=== PATIENT | female | born 1960 | race Caucasian/White ===

== ENCOUNTER 2019-11-01 13:44 | Outpatient (CLI) | payer OTHER, SELFPAY ==
--- NOTE | 2019-11-01 13:51 | MM_ITS ---
WS: [id number] BILATERAL DIGITAL SCREENING MAMMOGRAPHY WITH CAD CLINICAL INFORMATION: SCREENING HISTORY: Screening mammogram. No current complaints. COMPARISON: TECHNIQUE: Bilateral CC and MLO views. FINDINGS: Scattered fibroglandular densities bilaterally. Stable bilateral secretory calcifications. No suspici ous focal mass, asymmetry, calcifications, or architectural distortion. No evidence of malignancy. MM/[place] [id number] IMPRESSION: BI-RADS: 2-Benign FOLLOW UP: 1 Year Follow-up Recommend return to annual screening mammography.
== END 2019-11-01 13:45 | disposition home or self-care (01) ==
LOC: RADSHAW 13:48
PROVIDERS: PCP Family Medicine; Visit Provider Obstetrics & Gynecology
DX: Z12.31 Encounter for screening mammogram for malignant neoplasm of breast (principal)
CPT/HCPCS: 77067

== ENCOUNTER → 2019-12-29 14:00 | Outpatient (BNVA) | payer OTHER, SELFPAY | PROVIDERS: PCP Family Medicine; Visit Provider Nurse Practitioner Family | DX: N39.0 Urinary tract infection, site not specified (principal); D30.01 Benign neoplasm of right kidney | CPT/HCPCS: 81001 ==

== ENCOUNTER → 2020-09-24 08:53 | Outpatient (BNVA) | payer OTHER, SELFPAY | PROVIDERS: PCP Family Medicine; Visit Provider Nurse Practitioner Family | DX: Z20.828 Contact with and (suspected) exposure to other viral communicable diseases (principal); J98.8 Other specified respiratory disorders | CPT/HCPCS: 87635 ==

== ENCOUNTER → 2021-01-01 13:54 | Outpatient (BNVA) | payer OTHER, SELFPAY | PROVIDERS: PCP Family Medicine; Visit Provider Urology | DX: N39.0 Urinary tract infection, site not specified (principal); D30.01 Benign neoplasm of right kidney | CPT/HCPCS: 81003 ==

== ENCOUNTER 2021-01-17 14:13 | Outpatient (CLI) | payer OTHER, SELFPAY ==
--- NOTE | 2021-01-17 14:20 | MM_ITS ---
WS: [id number] BILATERAL SCREENING DIGITAL MAMMOGRAM WITH CAD HISTORY: SCREENING COMPARISON: 11/01/2019 and 09/29/2018 Bilateral CC and MLO views submitted. Computer aided detection analyzed. Breast composition: There are scattered areas of fibroglandular density. No suspicious masses, microc alcifications or architectural distortion. Benign rodlike calcifications scattered throughout each br east. MM/[place] [id number] IMPRESSION: BI-RADS: 2-Benign FOLLOW UP: 1 Year Follow-up
== END 2021-01-17 14:14 | disposition home or self-care (01) ==
LOC: RADSHAW 14:17
PROVIDERS: PCP Family Medicine; Visit Provider Obstetrics & Gynecology
DX: Z12.31 Encounter for screening mammogram for malignant neoplasm of breast (principal)
CPT/HCPCS: 77067

== ENCOUNTER 2022-02-12 14:18 | Outpatient (CLI) | payer OTHER, SELFPAY ==
--- NOTE | 2022-02-12 14:29 | MM_ITS ---
WS: [id number] BILATERAL 3D TOMOSYNTHESIS DIGITAL SCREENING MAMMOGRAPHY WITH CAD CLINICAL INFORMATION: Z12.39 - Encounter for other screening for malignant neop... HISTORY: Screening mammogram. No current complaints. COMPARISON: January 17, 2021 TECHNIQUE: Bilateral CC and MLO views. FINDINGS: Scattered fibroglandular densities bilaterally. Punctate and secretory calcifications. No suspicious focal mass, asymmetry, calcifications, or architectural distortion. No evidence of malignancy. MM/[place] [id number] IMPRESSION: BI-RADS: 2-Benign FOLLOW UP: 1 Year Follow-up Recommend return to annual screening mammography.
== END 2022-02-12 14:19 | disposition home or self-care (01) ==
PROVIDERS: PCP Family Medicine; Visit Provider Nurse Practitioner Women's Health
DX: Z12.31 Encounter for screening mammogram for malignant neoplasm of breast (principal)
CPT/HCPCS: 77063; 77067

== ENCOUNTER 2023-03-03 13:46 | Outpatient (CLI) | payer OTHER, SELFPAY ==
--- NOTE | 2023-03-03 13:56 | MM_ITS ---
WS: [id number] BILATERAL 3D TOMOSYNTHESIS DIGITAL SCREENING MAMMOGRAPHY WITH CAD CLINICAL INFORMATION: SCREENING HISTORY: Screening mammogram. No current complaints. COMPARISON: 2021 TECHNIQUE: Bilateral CC and MLO views. FINDINGS: Scattered fibroglandular densities bilaterally. No suspicious focal mass, asymmetry, calcifications, or architectural distortion. No evidence of malignancy. Incidental punctate and secretory calcificati ons. MM/[place] [id number] IMPRESSION: BI-RADS: 2-Benign FOLLOW UP: 1 Year Follow-up Recommend return to annual screening mammography.
== END 2023-03-03 13:47 | disposition home or self-care (01) ==
LOC: RAD 13:47
PROVIDERS: PCP Family Medicine; Visit Provider Family Medicine
DX: Z12.31 Encounter for screening mammogram for malignant neoplasm of breast (principal)
CPT/HCPCS: 77063; 77067

== ENCOUNTER 2023-05-05 13:48 | Outpatient (CLI) | payer OTHER, SELFPAY ==
--- NOTE | 2023-05-05 14:00 | XR_ITS ---
WS: [id number] SCREENING DEXA SCAN [employer] CLINICAL INFORMATION: Z78.0 - Asymptomatic menopausal state COMPARISON: None. FINDINGS: The L1-L4 bone mineral density measures 1.129 g/cm2. This corresponds to a T score score of -0.4 and Z score of 0.3. Left femoral neck bone mineral density measures 0.814 g/cm2. This corresponds to a T score of -1.5 an d Z score of -1.0. Right femoral neck bone mineral density measures 0.849 g/cm2. This corresponds to a T score -1.3of an d Z score of -0.7. Mean femoral neck bone mineral density measures 0.832 g/cm2. This corresponds to a T score of -1.4 an d Z score of -0.8. IMPRESSION: Normal bone mineralization lumbar spine. Osteopenia femoral necks. Patient's FRAX calculated 10 year probability for major osteoporotic fracture is 15.3% and osteoporot ic hip fracture is 4.5%.
== END 2023-05-05 13:49 | disposition home or self-care (01) ==
PROVIDERS: PCP Family Medicine; Visit Provider Nurse Practitioner Women's Health
DX: Z13.820 Encounter for screening for osteoporosis (principal); Z78.0 Asymptomatic menopausal state
CPT/HCPCS: 77080

== ENCOUNTER 2024-03-25 14:23 | Outpatient (CLI) | payer BC, SELFPAY ==
--- NOTE | 2024-03-25 14:31 | MM_ITS ---
WS: [id number] BILATERAL 3D TOMOSYNTHESIS DIGITAL SCREENING MAMMOGRAPHY WITH CAD CLINICAL INFORMATION: SCREEN HISTORY: Screening mammogram. No current complaints. COMPARISON: 2022 TECHNIQUE: Bilateral CC and MLO views. FINDINGS: Scattered fibroglandular densities bilaterally. No suspicious focal mass, asymmetry, calcifications, or architectural distortion. No evidence of malignancy. Incidental secretory calcifications. MM/[place] [id number] IMPRESSION: BI-RADS: 2-Benign FOLLOW UP: 1 Year Follow-up Recommend return to annual screening mammography.
== END 2024-03-25 14:24 | disposition home or self-care (01) ==
LOC: RAD 14:24
PROVIDERS: PCP Family Medicine; Visit Provider Nurse Practitioner Women's Health
DX: Z12.31 Encounter for screening mammogram for malignant neoplasm of breast (principal); R92.323 Mammographic fibroglandular density, bilateral breasts; R92.1 Mammographic calcification found on diagnostic imaging of breast
CPT/HCPCS: 77063; 77067

== ENCOUNTER → 2025-01-03 09:35 | Outpatient (BNVA) | payer BC, SELFPAY | PROVIDERS: PCP Family Medicine; Visit Provider Nurse Practitioner | DX: M79.671 Pain in right foot (principal) | CPT/HCPCS: 73630 ==

== ENCOUNTER 2025-04-19 13:01 | Outpatient (CLI) | payer BC, SELFPAY ==
--- NOTE | 2025-04-19 13:08 | MM_ITS ---
WS: [id number] BILATERAL 3D TOMOSYNTHESIS DIGITAL SCREENING MAMMOGRAPHY WITH CAD CLINICAL INFORMATION: SCREENING HISTORY: Screening mammogram. No current complaints. COMPARISON: 2023 TECHNIQUE: Bilateral CC and MLO views. FINDINGS: Scattered fibroglandular densities bilaterally. No suspicious focal mass, asymmetry, calcifications, or architectural distortion. No evidence of malignancy. Bilateral secretory calcifications. MM/MM scr tomosynthesis [id number] IMPRESSION: DENSITY: There are scattered areas of fibroglandular density. BI-RADS: 2 - Benign. FOLLOW UP: 1 Year Follow-up Recommend return to annual screening mammography.
== END 2025-04-19 13:02 | disposition home or self-care (01) ==
LOC: RAD 13:03
PROVIDERS: Visit Provider Nurse Practitioner Women's Health
DX: Z12.31 Encounter for screening mammogram for malignant neoplasm of breast (principal); R92.323 Mammographic fibroglandular density, bilateral breasts; R92.1 Mammographic calcification found on diagnostic imaging of breast
CPT/HCPCS: 77063; 77067

== ENCOUNTER → 2025-05-15 13:24 | Outpatient (BNVA) | payer BC, SELFPAY | PROVIDERS: PCP Nurse Practitioner; Visit Provider Nurse Practitioner | DX: M79.671 Pain in right foot (principal) | CPT/HCPCS: 73630 ==

== ENCOUNTER 2025-07-06 11:37 | Emergency (ER) | payer BC, SELFPAY ==
[2025-07-06 11:43] VITALS: BP 115/50; PULSE 71; TEMP 36.6; O2SAT 98; BMI 34.5
--- OUTSIDE RECORDS SUMMARY | 2025-07-06 12:05 | XMS_ITS | Patient Health Record ---
Author Organization [facility] Address [address] [place] [address] Care Team Providers Care Slat Grader Name Role Phone Abida Jones APRN Primary Care Provider Unav ailable Evan Fuller Unavailable Allergies Allergen (clinical drug ingredient) Drug/Non Drug Allergy documented on EMR Reaction Allergy Type Onset Date Status nitrofurantoin, macrocrystals / nitrofurantoin, monohydrate Macrobid Unknown Drug Allergy Active Results Component Value Reference Range Notes Diagnostic Colonoscopy-40001 Reviewed date:07/26/2024 02:25:41 PM Interpretation: Performing Lab: Notes/Report: Reason For Referral No Information Medications Medication SIG (Take, Route, Frequency, Duration) Notes Start Date End Date Status Pregabalin 225 MG Capsule 1 capsule in t he evening 1 to 3 hours before bedtime Orally Once a day Active Cephalexin 500 MG Capsule 1 capsule as n eeded Orally every 6 hrs Active Rosuvastatin Calcium 20 MG Tablet 1 tablet Orally Once a day Active Pioglitazone HCl 45 MG Tablet 1 tablet Orally Once a day Active Nystatin 778960 UNIT/GM Powder 1 application Externally Twice a day Active Aspirin 81 MG Tablet Delayed Release 1 tablet Orally Once a day Active Vitamin D3 125 MCG (5000 UT) Tablet 1 tablet Orally Once a day Active FLUoxetine HCl 20 MG Capsule 1 capsule Orally Once a day Active Triamcinolone Acetonide 0.5 % Cream 1 application Externally Two times a Week Active Fenofibrate 134 MG Capsule 1 capsule wit h a meal Orally Once a day Active Tresiba FlexTouch 200 UNIT/ML Solution Pen-injector as directed Subcutaneous Active Estrace 0.1 MG/GM Cream as directed Vaginal Active Aspirin 81 MG Capsule 1 capsule Orally O nce a day Active Mounjaro 7.5 MG/0.5ML Solution Pen-injector as directed Subcutaneous Active metFORMIN HCl 1000 MG Tablet 1 tablet with a meal Orally Once a day Active Magnesium 250 MG Capsule as directed Orally Active Vitamin E 400 UNIT Capsule 1 capsule Ora lly Once a day Active Cephalexin 250 MG Tablet 1 tablet Orally Once a day Not-Taking Cholecalciferol 100 MCG (4000 UT) Tablet 1 tablet Orally Once a day Active Fenofibrate Micronized 134 MG Capsule 1 capsule with a meal Orally Once a day Active Fluoxetine 20 MG Capsule 1 capsule Orall y Once a day Active Social History Tobacco Use: Social History Observation Description Date Details (start date - stop date) Never Smoker NA - NA Social History Depression Screening Social Info Question Answer Notes depression screening findings Findings Negative (0-4) Completed 05/25/2024 PHQ-9 Little interest or pleasure in doing things Not at all Feeling down, depressed, or hopeless Not at all Trouble falling or staying asleep, or sleeping t oo much Not at all Feeling tired or having little energy Not at all Poor appetite or overeating Not at all Feeling bad about yourself, or that you are a failure, or have let yourself or your family down Not at all Trouble concentrating on thi ngs, such as reading the newspaper or watching television Not at all Moving or speaking so slowly that other people could have noticed. Or the opposite ? being so fidgety or restless that you have been moving around a lot more than usual Not at all Thoughts that you would be b jasson off , or of hurting yourself in some way Not at all Total Score 0 Drugs/Alcohol: Social Info Question Answer Notes Drugs Have you used drugs other than those for medical reasons in the past 12 months? No Drug/Alcohol: Social Info Question Answer Notes AUDIT-C (Standard) Did you have a drink containing alcohol in the past year? No Points 0 Interpretation Negative Tobacco Use: Social Info Question Answer Notes Tobacco Control (Standard) Tobacco use: Nonsmoker Problems Problem Type SNOMED Code ICD Code Onset Dates Problem Status W/U Status Risk Notes Problem History of polyp of colon (situation) (581580028) History of colon polyps (Z86.010) Active confirmed Encounters Encounter Location Date Provider Diagnosis [facility] [address] [place] [id number] 07/22/2024 Evan Fuller History of colon polyps Z86.010 Assessments Encounter Date Diagnosis (ICD Code) Assessment Notes Treatment Notes Treatment Clinical Notes Section Notes 07/22/2024 History of colon polyps (ICD-10 - Z86.010) 07/22/2024 Other see scanned document from [facility] in patients documents. Plan Of Treatment No Information Insurance Providers Payer Name Payer Address Payer Phone Subscriber Number Group Number Insured Name Patient Relationship to Insured Coverage Start Date Coverage End Date [employer] [address] [place] [phone] [id number] JOSIE BANDA Self - patient is the insured Medical (General) History Medical History History ICD Code multiple sclerosis type II diabetes Surgical History Surgery Date(Month/Year) DNC hysterectomy
--- NOTE | 2025-07-06 12:13 | XR_ITS ---
WS: [id number] Exam: XR chest 1V portable [id number] Date/Time of Exam: 07/06/2025 12:13 PM Reason For Exam: dyspnea/cough No priors. The lungs are fully inflated and clear. Cardiomediastinal silhouette is unremarkable for technique. No pleural effusion. Mild thoracolumbar S-shaped scoliosis. Normal bony structures. Scattered calcified granulomas bilaterally. XR/XR chest 1V portable [id number] IMPRESSION: 1. No acute cardiopulmonary finding.
[2025-07-06 12:48] LABS: Hematocrit 39.8 % (36-47); Hemoglobin 12.80 g/dL (11.27-16.99); Mean Corpuscular HGB Conc 32.2 g/dL (30-55); Mean Corpuscular Hemoglobin 30.5 pg (27-33); Mean Corpuscular Volume 94.8 fl (85-98); Nucleated Red Blood Cells % 0 %; Platelet Count 471 10^3/cmm (157-399); Red Blood Count 4.20 10^6/uL (3.85-5.65); White Blood Count 4.94 10^3/uL (3.29-11.43)
[2025-07-06 13:07] LABS: Alanine Aminotransferase 22 U/L (0-33); Albumin Level 4.4 g/dL (3.5-5.2); Alkaline Phosphatase 64 U/L (35-105); Anion Gap 17.1 (5-19); Aspartate Amino Transferase 25 U/L (0-32); Blood Urea Nitrogen 23 mg/dL (8-23); Calcium 9.4 mg/dL (8.5-10.5); Carbon Dioxide 25 mmol/L (22-29); Chloride 103 mmol/L (98-107); Creatinine Clr Calc Pharmacy 92.5377; Globulin 3.0 g/dL (1.3-4.6); Glucose 88 mg/dL (65-115); Osmolality Calculated 295 mOsm/kg (285-295); Potassium 4.1 mmol/L (3.5-5.1); Sodium 141 mmol/L (136-145); Total Protein 7.4 g/dL (6.6-8.7)
--- NOTE | 2025-07-06 13:59 | ED_ITS ---
HPI - Fall 2 General: Chief Complaint: Fall Stated Complaint: fall / abd pain Time Seen by Provider: 07/06/25 13:57 History of Present Illness: 65-year-old female with a history of marilia ropathy, depression, diabetes, obesity, hyperlipidemia, multiple sclerosis and recurrent urinary tract infections who presents to the emergency room with bilateral rib pain that has persisted after a fall 2 weeks ago. She says it hurts when she breathes. She says her chiropractor told her some ribs were out. No fevers. No cough. No altered mental status. No nausea or vomiting. No obvious deformities or bruising. Related Data Home Medications ?Medication ?Instructions ?Recorded ?Confirmed aspirin 81 mg tablet,delayed 81 mg PO DAILY 09/12/19 1 release cholecalciferol (vitamin D3) 25 4,000 unit PO DAILY 07/06/25 mcg (1,000 unit) capsule fenofibrate micronized 134 mg 134 mg PO DAILY 09/12/19 07/06/25 capsule metformin 500 mg tablet 1,000 mg PO BID 09/12/19 pregabalin 225 mg capsule (Lyrica) 225 mg PO BID 09/1207/06/25 multivitamin 1 tab PO DAILY 11/01/1906/09 nystatin 100,000 unit/gram topical 1 applic topical DA LINDEN PRN 11/01/19 07/06/25 powder pioglitazone 30 mg tablet 45 mg PO DAILY 05/03/2406/09 rosuvastatin 20 mg tablet 20 mg PO DAILY 05/03/2406/09 vitamin E (dl, acetate) 45 mg (100 45 mg PO DAILY 04/0807/06/25 unit) capsule insulin degludec 200 unit/mL (3 28 unit SUBCUT DAILY 0 05/15/25 07/06/25 mL) subcutaneous pen (Tresiba FlexTouch U-200 insulin) tirzepatide 12.5 mg/0.5 mL 12.5 mg SUBCUT .weekly 05/0107/06/25 subcutaneous pen injector (Nava) Previous Rx's ?Medication ?Instructions ?Recorded albuterol sulfate 90 mcg/actuation 2 inh inhalation QI D PRN shortness 12/05/24 aerosol inhaler of breath or wheezing #8.5 g demetra cephalexin 500 mg capsule 500 mg PO TID PRN acute infe ction 05/15/25 #60 caps fluoxetine 20 mg capsule 20 mg PO BID #180 caps 05/15 cyclobenzaprine 10 mg tablet 10 mg PO Q8H PRN muscle s pasm #20 07/06/25 tabs diclofenac sodium 50 mg 50 mg PO BID PRN pain #14 ta bs 07/06/25 tablet,delayed release estradiol 0.01% (0.1 mg/gram) 1 g vaginal .COMPLEX #42 .5 grams 07/06/25 vaginal cream (Estrace) tramadol 50 mg tablet 50 mg PO Q8H PRN pain #20 ta bs 07/06/25 triamcinolone acetonide 0.5 % See Rx Instructions .Rou te 07/06/25 topical cream .COMPLEX #15 grams Allergies Allergy/AdvReac Type Severity Reaction Status Date / Time nitrofurantoin (From Allergy ALGY-Rash Verified 07/06/25 14:53 Macrobid) Review of Systems 2 Narrative: Constitutional symptoms: Negative except as documented in HPI. Skin symptoms: Negative except as documented in HPI. Eye symptoms: Negative except as documented in HPI. ENMT symptoms: Negative except as documented in HPI. Respiratory symptoms: Negative except as documented in HPI. Cardiovascular symptoms: Negative except as documented in HPI. Gastrointestinal symptoms: Negative except as documented in HPI. Genitourinary symptoms: Negative except as documented in HPI. Musculoskeletal symptoms: Negative except as documented in HPI. Neurologic symptoms: Negative except as documented in HPI. Psychiatric symptoms: Negative except as documented in HPI. Endocrine symptoms: Negative except as documented in HPI. PFSH ED 2 PFSH: Medical History (Updated 07/06/25 @ 15:15 by Sulema Olivo APN, KELLY) Fatty liver Multiple sclerosis Neurology: S[facility] Hyperlipidemia HSV (herpes simplex virus) infection Diabetes mellitus [facility]. Kern Chronic cystitis Chronic vulvitis Surgical History Hx of carpal tunnel repair (~2008) L wrist History of liver biopsy (~2008) Status post dilation and curettage (~1986) SAB History of hysterectomy (08/10/01) Total abdominal hysterectomy, Left salpingo-oophorectomy, Abdominal sacral colpopexy, Modified Moschcowitz culdoplasty, Suazo urethropexy, Paravaginal repair, Posterior colporrhaphy with perineorrhaphy, Cystoscopy. Diagnosis: Incomplete uterovaginal prolapse (second degree uterine prolapse, second to third degree cystocele, first-degree rectocele), Stress urinary incontinence. Performed by Dr. Bob Palafox at [facility] in [place], [place]. Family History Father , AT AGE 73 Diabetes Heart disease Mother Hypertension Family history of thyroid problem Grandfather Heart disease Maternal Denies family history of Colon cancer Ovarian cancer Hypercholesteremia Breast cancer Uterine cancer Stroke Social History Smoking and tobacco/nicotine status: never used tobacco/nicotine Alcohol intake: unknown Substance/Drug Use: unknown Adopted: No Caregiver/support person: No Lives independently: Yes Household members: spouse Housing: House Marital status: Number of children: 2 service: No Current occupational status: retired Current occupational exposures/hazards: No Pets and animals: No Do you think of yourself as: Straight/Heterosexual Current gender identity: Female Physical Exam 2 Narrative: EXAM NARRATIVE: General: Alert, no acute distress. Skin: Warm, dry. Head: Normocephalic, atraumatic. Neck: Supple, trachea midline. Eye: Extraocular movements are intact. Ears, nose, mouth and throat: mucosa moist. Cardiovascular: Regular, Normal peripheral perfusion. Respiratory: Lungs are clear to auscultation, respirations are non-labored, breath sounds are equal, Symmetrical chest wall expansion. Bilateral rib tenderness Gastrointestinal: Soft, Nontender, Non distended Musculoskeletal: Normal ROM, no deformity. Neurological: Alert and oriented, No focal neurological deficit observed. Psychiatric: Cooperative, appropriate mood & affect. Course 2 Vital Signs: Vital signs: Vital Signs Temperature 97.8 F 07/06/25 11:43 Pulse Rate 69 07/06/25 14:16 Blood Pressure 125/77 07/06/25 14:16 Pulse Oximetry 99 07/06/25 14:16 Oxygen Delivery Me thod Room Air 07/06/25 14:03 MDM - Fall Medical Decision Making Medical decision making: Patient's reason for coming to the emergency room: Rib pain after a fall Social determinants: Patient is retired and . I reviewed the patient's medical record. 65-year-old female with a history of neuropathy, depression, diabetes, obesity, hyperlipidemia, multiple sclerosis and recurrent urinary tract infections I reviewed the patient's current home meds I reviewed prescription monitoring. Patient has had no narcotic prescriptions in the last year. Alternate historians: None Differential diagnosis: including but not limited to and based on the above HPI, review of systems and physical exam: In this patient with continued rib pain without concern for pneumonia, rib fractures, pneumothorax etc. X-ray and basic lab work ordered to evaluate. Chest x-ray: No acute process. No infiltrate. No pneumothorax. This was reviewed and interpreted by myself the emergency room physician. I also reviewed the radiology report. Lab Review: Laboratory results were reviewed and interpreted by myself the emergency room physician. No leukocytosis. No anemia. No renal failure. Assessment of risk: Level of risk: Moderate. Several comorbidities. Hospitalization considerations: No consideration of admission. Reexamination: Patient remained stable. No increased work of breathing. No altered mental status. No focal motor deficits. Assessment and plan: Rib contusion ?Toradol and Decadron in the emergency room - Discharged home - Discussed plan with patient. Answered any questions. - Evaluation and treatment of this problem were appropriate in the emergency setting. Lab Data 07/06/25 12:29 07/06/25 12:29 Radiology Impressions Chest X-Ray 07/06/25 12:13 IMPRESSION: 1. No acute cardiopulmonary finding. Laboratory Results WBC 4.94 10^3/uL (3.29-11.43) 07/06/25 12: RBC 4.20 10^6/uL (3.85-5.65) 07/06/25 12: Hgb 12.80 g/dL (11.27-16.99) 07/06/25 12: Hct 39.8 % (36-47) 07/06/25 12: MCV 94.8 fl (85-98) 07/06/25 12: MCH 30.5 pg (27-33) 07/06/25 12: MCHC 32.2 g/dL (30-55) 07/06/25 12:29 RDW 14.2 % (12.1-15.1) 07/06/25 12: Plt Count 471 10^3/cmm (157-399) H 07/06/25 12: MPV 9.9 fL (7.4-10.4) 07/06/25 12: Neut % (Auto) 58.7 % 07/06/25 12: Lymph % (Auto) 30.0 % 07/06/25 12: Curry % (Auto) 7.7 % 07/06/25 12: Eos % (Auto) 1.8 % 07/06/25 12: Baso % (Auto) 1.4 % 07/06/25 12: Neut # (Auto) 2.90 10^3/uL (1.8-7.7) 07/06/25 12: Lymph # (Auto) 1.5 10^3/uL (0.8-4.8) 07/06/25 12: Curry # (Auto) 0.4 10^3/uL (0.2-0.9) 07/06/25 12: Eos # (Auto) 0.1 10^3/uL (0.0-0.8) 07/06/25 12: Baso # (Auto) 0.1 10^3/uL (0.0-0.1) 07/06/25 12: Nucleated RBC % (auto) 0 % 07/06/25 12: Nucleated RBCs # 0.0 /100WBC 07/06/25 12: Sodium 141 mmol/L (136-145) 07/06/25 12: Potassium 4.1 mmol/L (3.5-5.1) 07/06/25 12: Chloride 103 mmol/L (98-107) 07/06/25 12: Carbon Dioxide 25 mmol/L (22-29) 07/06/25 12: Anion Gap 17.1 (5-19) 07/06/25 12: BUN 23 mg/dL (8-23) 07/06/25 12: Creatinine 0.6 mg/dL (0.5-0.9) 07/06/25 12: GFR Calculation 100.6 mL/min (90-130) 07/06/25 12: Glucose 88 mg/dL (65-115) 07/06/25 12: Calculated Osmolality 295 mOsm/kg (285-295) 07/06/25 12: Calcium 9.4 mg/dL (8.5-10.5) 07/06/25 12: Total Bilirubin 0.3 mg/dL (0.15-1.2) 07/06/25 12: AST 25 U/L (0-32) 07/06/25 12: ALT 22 U/L (0-33) 07/06/25 12: Alkaline Phosphatase 64 U/L (35-105) 07/06/25 12: Total Protein 7.4 g/dL (6.6-8.7) 07/06/25 12: Albumin 4.4 g/dL (3.5-5.2) 07/06/25 12: Globulin 3.0 g/dL (1.3-4.6) 07/06/25 12:29 Urine Color Yellow (Yellow) 07/06/25 13:46 Urine Appearance Cloudy (CLEAR) A 07/06/25 13:46 Urine pH 8.5 (5-7) A 07/06/25 13:46 Ur Specific [place] 1.021 (1.005-1.030) 07/06/25 13:46 Urine Protein Negative (Negative) 07/06/25 13:46 Urine Glucose (UA) Negative (Normal) 07/06/25 13:46 Urine Ketones Negative (Negative) 07/06/25 13:46 Urine Blood Negative (Negative) 07/06/25 13:46 Urine Nitrate Negative (Negative) 07/06/25 13:46 Urine Bilirubin Negative (Negative) 07/06/25 13:46 Urine Urobilinogen 1.0 mg/dL (Negative) 07/06/25 13:46 Ur Leukocyte Esterase Trace (Negative) A 07/06/25 13:46 Urine RBC 0-2 /hpf (0-2) 07/06/25 13:46 Urine WBC 0-5 /hpf (0-5) 07/06/25 13:46 Ur Squamous Epith Cells 11-20 /hpf (0-5) H 07/06/25 13:46 Amorphous Sediment Not Reportable 07/06/25 13:46 Urine Bacteria None seen /hpf (NONE) 07/06/25 13:46 Hyaline Casts 1.21 /lpf 07/06/25 13:46 All radiology interpretation(s) finalized by discharge Discharge Plan Discharge Patient Disposition: Home Clinical Impression: Rib contusion Condition: Stable Prescriptions: New cyclobenzaprine 10 mg tablet 10 mg PO Q8H PRN (Reason: muscle spasm) Qty: 20 0RF tramadol 50 mg tablet 50 mg PO Q8H PRN (Reason: pain) Qty: 20 0RF diclofenac sodium 50 mg tablet,delayed release (DR/EC) 50 mg PO BID PRN (Reason: pain) Qty: 14 0RF No Action nystatin 100,000 unit/gram powder 1 applic TOPICAL DAILY PRN multivitamin Tablet 1 tab PO DAILY fenofibrate micronized 134 mg capsule 134 mg PO DAILY cholecalciferol (vitamin D3) 1,000 unit capsule 4,000 unit PO DAILY aspirin 81 mg tablet,delayed release (DR/EC) 81 mg PO DAILY pregabalin [Lyrica] 225 mg capsule 225 mg PO BID metformin 500 mg tablet 1,000 mg PO BID Tresiba FlexTouch U-200 200 unit/mL (3 mL) insulin pen 28 unit SUBCUT DAILY Rx Instructions: 28 units pioglitazone 30 mg tablet 45 mg PO DAILY rosuvastatin 20 mg tablet 20 mg PO DAILY vitamin E (dl, acetate) 45 mg (100 unit) capsule 45 mg PO DAILY estradiol [Estrace] 0.01 % (0.1 mg/gram) cream 1 g vaginal .COMPLEX Qty: 42.5 3RF Rx Instructions: insert 1 gram at hs for 7 nights then twice weekly-- space out doses triamcinolone acetonide 0.5 % cream See Rx Instructions .ROUTE .COMPLEX Qty: 15 6RF Dose Instruction: APPLY TOPICALLY TWICE WEEKLY Rx Instructions: APPLY TOPICALLY TWICE WEEKLY Mounjaro 12.5 mg/0.5 mL pen injector 12.5 mg SUBCUT .weekly cephalexin 500 mg capsule 500 mg PO TID PRN (Reason: acute infection) Qty: 60 3RF Rx Instructions: 500 mg orally three times daily; for acute cystitis fluoxetine 20 mg capsule 20 mg PO BID Qty: 180 1RF albuterol sulfate 90 mcg/actuation HFA aerosol inhaler 2 inh inhalation QID PRN (Reason: shortness of breath or wheezing) Qty: 8.5 2RF Discharge Orders: Discharge ED (Routine); Ordered 07/06/25 Ordered By: Christelle Oviedo Referrals: Abida Jones, PROFESSOR OF RELIGION-C [Primary Care Provider, Family Practice] Discharge Diet: Usual diet Discharge Activity: Increase activity as tolerated Patient Instructions: Rib Contusion (ED), Opioid Safety, Pain Management, Patient Portal & Katie Instructions Activity Restrictions/Additional Instructions: Thank you for choosing [facility] for your healthcare needs today. You have been screened and evaluated and felt safe for discharge. Health conditions do change or evolve sometimes and as such it is important that you follow up with your Primary Doctor to be re checked, 3-5 days is a general good time frame for follow up. You are always welcome to return to the ED for re assessment if your symptoms are worsening or you have new concerns Print Language: Luxembourgish Coding Level of Care Code ED Supervisor Cloth Winding for Elmo Johnson
[2025-07-06 14:03] VITALS: BP 125/77; PULSE 63; O2SAT 99
[2025-07-06 14:03] LABS: Glucose Urine UA Negative (Normal); Nitrate Urine Negative (Negative); Specific Gravity, Urine 1.021 (1.005-1.030)
[2025-07-06 14:09] LABS: Add Urine Microscopic? YES
[2025-07-06 14:16] VITALS: BP 125/77; PULSE 69; O2SAT 99
== END 2025-07-06 14:17 | disposition home or self-care (01) ==
PROVIDERS: Family Medicine; Emergency Provider Emergency Medicine; PCP Nurse Practitioner
DX: S20.219A Contusion of unspecified front wall of thorax, initial encounter (principal); Z79.82 Long term (current) use of aspirin; Z79.84 Long term (current) use of oral hypoglycemic drugs; E78.5 Hyperlipidemia, unspecified; E11.9 Type 2 diabetes mellitus without complications; W19.XXXA Unspecified fall, initial encounter
CPT/HCPCS: 36415; 71045; 80053; 81001; 85025; 96372; 99284; J1100; J1885

== ENCOUNTER 2025-07-18 13:31 | Outpatient (CLI) | payer BC, SELFPAY ==
--- NOTE | 2025-07-18 13:30 | XR_ITS ---
WS: [id number] DEXA (DUAL ENERGY X-RAY ABSORPTIOMETRY) Bone mineral density was performed using a [employer] machine. HISTORY: Z78.0 - Asymptomatic menopausal state COMPARISON: 05/05/2023 Lumbar spine BMD (L1-L4): 1.126 g/cm2 T score: -0.5 Z score: 0.5 Total hip BMD: Left: 0.777 g/cm2. T score: -1.8 Z score: -1.1 Right: 0.842 g/cm2. T score: -1.3 Z score: -0.6 10 year probability of a major osteoporotic fracture is 14.5%. Compared to the prior study from 05/05/2023. Lumbar spine bone mineral density has decreased by 0.3%. Bilateral hips bone mineral density has decreased by 2.8%. XR/XR DEXA axial skeleton* [id number] IMPRESSION: OSTEOPENIA based upon the WHO classification for females. No significant change of bone mineral density in the lumbar spine since the tirso or study. Significant decrease in bone mineral density in the hips since the prior study.
== END 2025-07-18 13:32 | disposition home or self-care (01) ==
LOC: RAD 13:31
PROVIDERS: PCP Nurse Practitioner; Visit Provider Nurse Practitioner Women's Health
DX: Z13.820 Encounter for screening for osteoporosis (principal); Z78.0 Asymptomatic menopausal state; M85.88 Other specified disorders of bone density and structure, other site
CPT/HCPCS: 77080

== ENCOUNTER → 2025-08-01 12:07 | Outpatient (BNVA) | payer BC, SELFPAY | PROVIDERS: PCP Nurse Practitioner; Visit Provider Nurse Practitioner Women's Health | DX: G62.9 Polyneuropathy, unspecified (principal); Z78.0 Asymptomatic menopausal state; M85.80 Other specified disorders of bone density and structure, unspecified site | CPT/HCPCS: 82306; 82670 ==

== ENCOUNTER → 2025-08-07 15:15 | Outpatient (BNVA) | payer BC, SELFPAY | PROVIDERS: PCP Nurse Practitioner; Visit Provider Nurse Practitioner | DX: R10.31 Right lower quadrant pain (principal) | CPT/HCPCS: 80053; 81000; 85025 ==

== ENCOUNTER 2025-08-16 15:34 | Outpatient (CLI) | payer BC, SELFPAY ==
--- NOTE | 2025-08-16 16:45 | CTR_ITS ---
PROCEDURE INFORMATION: Exam: CT Abdomen And Pelvis Without Contrast Exam date and time: 08/16/2025 4:42 PM Age: 65 years old Clinical indication: Abdominal pain; Localized; Right lower quadrant (rlq); Prior surgery; Surgery date: 6+ months; Surgery type: Hyst; Right lower quad pain with constipation x 2 weeks; Additional info: R10.31 - right lower quadrant pain TECHNIQUE: Imaging protocol: Computed tomography of the abdomen and pelvis without contrast. Radiation optimization: All CT scans at this facility use at least one of these dose optimization techniques: automated exposure control; mA and/or kV adjustment per patient size (includes targeted exams where dose is matched to clinical indication); or iterative reconstruction. COMPARISON: CR XR chest 1V portable [id number] 07/06/2025 1:16 PM RADIATION DOSE METRICS: Total DLP (mGy-cm): 652.32 FINDINGS: Lungs: There are multiple small calcified lung granulomas. Liver: Normal. No mass. Gallbladder and biliary ducts: Normal. No calcified stones. No ductal dilation. Pancreas: Normal. No ductal dilation. Spleen: There is a calcified splenic granuloma. Adrenal glands: Normal. No mass. Kidneys and ureters: There is a 1 mm nonobstructing calculus in the midpole of the right kidney. There is no evidence of hydronephrosis or obstructing calculi. Stomach and bowel: There is colonic diverticulosis without evidence of acute diverticulitis. Appendix: Appendix is not confidently identified. There are no secondary signs of acute appendicitis. Intraperitoneal space: Unremarkable. No free air. No significant fluid collection. Vasculature: Unremarkable. No abdominal aortic aneurysm. Lymph nodes: Unremarkable. No enlarged lymph nodes. Urinary bladder: Unremarkable as visualized. Reproductive: There has been prior hysterectomy. Bones/joints: There is moderate chronic L1 compression deformity. There are mild multilevel degenerative changes of the lumbar spine. Soft tissues: Unremarkable. Other findings: Evaluation is limited by lack of intravenous contrast. CT/CT abdomen pelvis wo con [id number] IMPRESSION: 1. No acute intra-abdominal process seen. 2. Evidence of prior granulomatous disease. 3. Right-sided nephrolithiasis. 4. Colonic diverticulosis. 5. Other findings as detailed above.
[2025-08-16] MEDS: iohexol 350 mg/mL 500 mL Btl (per mL) PO (16:52)
== END 2025-08-16 15:35 | disposition home or self-care (01) ==
LOC: RAD 15:35
PROVIDERS: PCP Nurse Practitioner; Visit Provider Nurse Practitioner
DX: R10.31 Right lower quadrant pain (principal); D73.89 Other diseases of spleen; N20.0 Calculus of kidney; K57.30 Diverticulosis of large intestine without perforation or abscess without bleeding; Z90.710 Acquired absence of both cervix and uterus; M43.8X6 Other specified deforming dorsopathies, lumbar region; M51.369 Other intervertebral disc degeneration, lumbar region without mention of lumbar back pain or lower extremity pain
CPT/HCPCS: 74176